=== PATIENT | male | born 1975 | race Caucasian/White ===

== ENCOUNTER 2018-12-06 22:58 | Emergency (ER) | payer MEDICAID ==
[~2018-12-06] VITALS: Ht 167.6 cm; Wt 74.8 kg
[2018-12-06 23:01] VITALS: BP 142/79
== END 2018-12-07 00:47 | disposition home or self-care (01) ==
LOC: ER 23:01
DX: Z02.89 Encounter for other administrative examinations (principal); Z60.2 Problems related to living alone